=== PATIENT | female | born 1990 | race Caucasian/White ===

== ENCOUNTER 2018-02-24 18:26 | Emergency (ER) | payer OTHER ==
[2018-02-24 19:39] VITALS: BP 0/0
== END 2018-02-24 19:40 | disposition left against medical advice (07) ==
LOC: ED 18:26
DX: K08.89 Other specified disorders of teeth and supporting structures (principal); Z53.20 Procedure and treatment not carried out because of patient's decision for unspecified reasons
CPT/HCPCS: 99281

== ENCOUNTER 2018-04-18 15:40 | Inpatient (IN) | payer OTHER ==
[2018-04-18 16:23] LABS: Urine Appearance Cloudy; Urine Blood 1+ (Negative); Urine Color Yellow; Urine Ketones Negative (Negative); Urine Protein Negative (Negative); Urine Specific Gravity 1.003 (1.010-1.030); Urine Urobilinogen Negative (Negative)
[2018-04-18] MEDS ORDERED: Buffered Lidocaine 0.9% SYRIN* 5 ML/SYR SYRINGE ONE (17:39)
--- NOTE | 2018-04-18 18:14 | HP ---
General Information - General Information Maternal Age: 27 Grav: 4 Para: 3 SAB: 0 IEA: 0 Estimated Due Date: 05/14/18 Determined By: Early Ultrasound Gestational Age in Weeks and Days: 36 Weeks and 2 Days Maternal Blood Type and Rh: O Positive - Results this Serology/RPR Result: Non-Reactive Rubella Result: Immune HBsAg Result: Negative HIV Result: Negative GBS Culture Result: Positive Past Medical History Delivery History: Hx Uncomplicated Vaginal Delivery Delivery History Comment: 09/2010 35 weeks 5lb 8oz male 03/2012 38 weeks 6lbs 12oz female 01/2015 38 weeks 7lbs 10oz male Pertinent Past Medical History: See Records Past Medical History Comment: +Tobacco Use 1/2 PPD + THC use in + Fentanyl metabolite in . Pt denies use. Hypothesized that she smoked weed with her sister that was laced Pertinent Past Surgical History: See Records Past Surgical History Comment: 1992 Surgery on nasal passage [place] tooth extraction Pertinent Family History: See Records Family History Comment: Father: substance abuse Mother: asthma, CVA Son: Hypothyroidism brother (twin 1): asthma, stomach ulcers brother (twin 2): , accident sister (twin 1): at , CP sister (twin 2): due to heart tumor, kidney failure MGM: DM, type II MGF: , MA - Antepartal Records Antepartal Records: Reviewed, Complicated by: - +THC Use Review of Systems Constitutional: Uncomfortable - with UCs CV Complaint: No Respiratory: Shortness of Breath: No Gastrointestinal: No Nausea/Vomiting, Normal Bowel Movement Genitourinary: No Dysuria, No Bleeding, No Leaking Fluid Musculoskeletal: Contractions Neurological: No Headache, No Visual Changes Movement: Normal Exam Allergies/Adverse Reactions: Allergies amoxicillin Allergy (Verified 04/18/18 16:34) Hives Penicillins Allergy (Verified 04/18/18 16:40) Hives BP 122/81 HR 74 T 97.9 RR 18 Lab Values - Entire Visit: Laboratory Tests 04/18/18 04/18/18 15:55 15:55 Urine Color Yellow Urine Appearance Cloudy Urine pH 7.0 Ur Specific [place] 1.003 L Urine Protein Negative Urine Ketones Negative Urine Blood 1+ A Urine Nitrate Negative Urine Bilirubin Negative Urine Urobilinogen Negative Ur Leukocyte Esterase Trace A Urine WBC (Auto) Trace(0-5/hpf) Urine RBC (Auto) Trace(0-2/hpf) Ur Squamous Epith Cells Present A Urine Bacteria Absent Urine Glucose Negative Urine Opiates Screen None detected Ur Barbiturates Screen None detected Ur Phencyclidine Scrn None detected Ur Amphetamines Screen None detected U Benzodiazepines Scrn None detected Urine Cocaine Screen None detected U Cannabinoids Screen None detected - Measurements Height: 5 ft 2.5 in Weight: 123 lb Weight in lbs: 123 Body Mass Index (BMI): 22.1 Pre- Weight: 110 lb Weight Gained This : 13 lbs and 0 ozs - Exam Abdomen: No Upper Quadrant Pain Breast: Breast Exam Deferred CVA: No CVA Tenderness Extremities: No Edema Heart: Normal Rhythm/Heart Sounds HEENT: No Significant Findings Lungs: Clear Bilaterally Rectal: Rectal Exam Deferred Reflexes: DTR 2+ Thyroid: No Thyromegaly - Abdominal Exam Abdomen Exam: Non-Tender, Fundal Height Consistent with Dates - Ultrasound/Biophysical Profile Ultrasound Status: Not Done Targeted Exam Findings See L&D Outpatient Visit Provider Note for Findings: N/A Estimated Weight: 5.5-6lbs Cervical Exam: 5cm Effacement: 80% Station: -1 Presenting Part: Vertex Membrane Status: Bulging Sterile Speculum Exam: not done Bleeding/Discharge: Bloody Show - with exam EFM Findings - External Monitor Findings Baseline Heart Rate: 125 External Monitor Findings: Accelerations Present, No Pattern of Variable or Late Decelerations, Variability Moderate, Baseline Stable External Monitor Findings Comment: No evidence of metabolic acidemia Contractions: Regular, Moderate, 45-90 Seconds - q 2-6 Assessment/Plan - Reason for Visit Reason for Visit: labor - Obstetrical Risk Factors Obstetrical Risk Factors: GBS Positive, , Substance Abuse, Tobacco Use - Plan Plan: Observe, Early Labor Plan Comment: Continue to monitor. Begin GBS Prophylaxis. Anticipate - Date/Time of Admission Date of Admission: 04/18/18 Time of Admission: 18:28
[2018-04-18 18:22] LABS: ABS Basophils 0.1 10^3/ul (0-0.2); ABS Eosinophils 0.2 10^3/ul (0-0.6); ABS Lymphocytes 2.3 10^3/ul (1.0-4.8); ABS Monocytes 0.9 10^3/ul (0-0.8); ABS Neutrophils 11.2 10^3/ul (1.5-7.7); ABS Nucleated RBC 0 10^3/ul; Eosinophil % 1.1 % (0-6); Hematocrit 39 % (35-47); Hemoglobin 13.4 g/dl (12.0-16.0); Lymphocyte % 15.9 % (25-47); Mean Corpuscular HGB Conc 34 g/dl (31-36); Mean Corpuscular Hemoglobin 31 pg (27-31); Mean Corpuscular Volume 90 fL (80-97); Mean Platelet Volume 9.7 um3 (7.4-10.4); Nucleated Red Blood Cells % 0; Platelet Count 273 10^3/ul (150-450); Red Blood Count 4.33 10^6/ul (4.0-5.4); Red Cell Distribution Width 14 % (10.5-15); White Blood Count 14.7 10^3/ul (3.5-10.8)
[2018-04-18] MEDS ORDERED: Vancomycin(*) 1,000 MG in NS 0.9% 250 ML* 250 ML IVPB SCH (19:00)
[2018-04-18] MEDS ORDERED: Oxytocin in LR* 0 UNITS/0 ML BAG IVPB ONE (23:28)
[2018-04-19] MEDS ORDERED: Dibucaine 1% 28.35 GM TUBE PR PRN (03:10)
[2018-04-19] MEDS ORDERED: Witch Hazel PAD* JAR TOPICAL PRN (03:10)
[2018-04-19] MEDS ORDERED: Glycerin ADULT SUPP PR PRN (03:10)
[2018-04-19] MEDS ORDERED: OXYTOCIN* 10 UNITS/ML 1 ML VIAL IM ONE (03:10)
[2018-04-19] MEDS ORDERED: Acetaminophen TAB* 325 MG PO PRN (03:10)
[2018-04-19] MEDS: Ibuprofen TAB* 600 MG PO PRN ×3 (04:07→17:09)
[2018-04-19] MEDS ORDERED: OXYTOCIN* 10 UNITS/ML 1 ML VIAL ONE (05:03)
[2018-04-19] MEDS ORDERED: Simethicone TAB* 80 MG TAB.CHEW PO SCH (08:30)
[2018-04-19] MEDS: Docusate CAP* 100 MG PO SCH ×3 (10:48→20:49)
[2018-04-20 06:53] LABS: ABS Basophils 0.1 10^3/ul (0-0.2); ABS Eosinophils 0.2 10^3/ul (0-0.6); ABS Lymphocytes 2.9 10^3/ul (1.0-4.8); ABS Neutrophils 7.5 10^3/ul (1.5-7.7); ABS Nucleated RBC 0 10^3/ul; Eosinophil % 1.6 % (0-6); Hematocrit 33 % (35-47); Hemoglobin 11.3 g/dl (12.0-16.0); Lymphocyte % 24.9 % (25-47); Mean Corpuscular HGB Conc 34 g/dl (31-36); Mean Corpuscular Hemoglobin 31 pg (27-31); Mean Corpuscular Volume 90 fL (80-97); Mean Platelet Volume 9.3 um3 (7.4-10.4); Nucleated Red Blood Cells % 0; Platelet Count 231 10^3/ul (150-450); Red Blood Count 3.67 10^6/ul (4.0-5.4); Red Cell Distribution Width 14 % (10.5-15); White Blood Count 11.6 10^3/ul (3.5-10.8)
[2018-04-20] MEDS: Ibuprofen TAB* 600 MG PO PRN (08:06)
[2018-04-20] MEDS: Docusate CAP* 100 MG PO SCH (08:06)
[2018-04-20 09:00] VITALS: BP 100/59
[2018-04-20] MEDS ORDERED: Ferrous Gluconate TAB* 324 MG TAB PO SCH (09:00)
== END 2018-04-20 12:50 | disposition home or self-care (01) | DRG 560 ==
LOC: MCHOBOUT 15:40 → MCHOB 17:36
PROVIDERS: ADMIT Midwife; ATTEND Midwife
PROC: 10E0XZZ Delivery of Products of Conception, External Approach (ICD-10-PCS; principal; 2018-04-19)
PROC: 10907ZC Drainage of Amniotic Fluid, Therapeutic from Products of Conception, Via Natural or Artificial Opening (ICD-10-PCS; 2018-04-19)
DX: O60.14X0 Preterm labor third trimester with preterm delivery third trimester, not applicable or unspecified (principal); O99.824 Streptococcus B carrier state complicating childbirth; O69.3XX0 Labor and delivery complicated by short cord, not applicable or unspecified; O69.89X0 Labor and delivery complicated by other cord complications, not applicable or unspecified; Z3A.36 36 weeks gestation of pregnancy; Z37.0 Single live birth
CPT/HCPCS: 36415; 80307; 81003; 81015; 85025; 86850; 86900; 86901; 87086; 88307; A9270-GY; J2590; J3370

== ENCOUNTER 2019-08-19 05:32 | Inpatient (IN) | payer OTHER ==
[2019-08-19] MEDS ORDERED: Oxytocin in LR* 20 UNITS/1,000 ML BAG IVPB ONE (06:05)
[2019-08-19] MEDS ORDERED: Acetaminophen TAB* 325 MG PO PRN (06:27)
[2019-08-19] MEDS ORDERED: Glycerin ADULT SUPP PR PRN (06:27)
[2019-08-19] MEDS ORDERED: Witch Hazel PAD* JAR TOPICAL PRN (06:27)
[2019-08-19] MEDS ORDERED: Dibucaine 1% 28.35 GM TUBE PR PRN (06:27)
--- NOTE | 2019-08-19 06:42 | PROCNOTE ---
[facility] OB: Delivery Note - Delivery A Date of : 08/19/19 Time of : 06:02 [place] Sex: Female Score 1 Minute: 7 Score 5 Minutes: 8 Gestational Age in Weeks and Days at Delivery: 37 Weeks and 5 Days Delivery Method: Spontaneous Vaginal Labor: Spontaneous Did Patient attempt ?: N/A, No Previous Amniotic Fluid: Clear Estimated Blood Loss: 400 Anesthesia/Analgesia: None Delivered By: Malena Gutierrez - Nursery Level of Nursery: Regular/Bedside - Perineum Perineal Injury: None/Intact Perineal Repair: None - Events Delivery Events of Note: Pitocin Only After Delivery, Precipitous Delivery Delivery Events of Note Comment: Delivered in tub. umbilical cord snapped following delivery - Additional Delivery Notes Additional Delivery Notes: at 37 2/7 weeks in spontaneous labor experienced SROM to clear fluid at 0600 while laboring in the tub. head delivered OA at 0602, shoulders followed easily with next push. Infant delivered to maternal abdomen, umbilical cord found to be snapped. Cord clamped, to warmer, spontaneous cry and HR > 110. Apgars 7 and 8. [employer] Manager and RNs assisted Lilian to bed, cord blood collected and IV started to hand pitocin. Spontaneous alexandro placenta followed at 0608, inspected and appears intact; fundus firm with massage. Perineum and vagina inspected and found to be intact. to NICU for high heart rate and possible blood loss, mother and infant both in stable condition at time of note. feeding plan is breast and bottle.
[2019-08-19] MEDS ORDERED: Lactated Ringers 1000 ML Bag* 1,000 ML IV SCH (07:00)
[2019-08-19] MEDS ORDERED: Oxytocin in LR* 20 UNITS/1,000 ML BAG IVPB SCH (07:00)
--- NOTE | 2019-08-19 07:33 | HP ---
General Information - Reason for Visit Contractions - General Information Maternal Age: 29 Grav: 5 Para: 4 SAB: 0 IEA: 0 Estimated Due Date: 09/04/19 Determined By: Early Ultrasound Gestational Age in Weeks/Days: 37 5/7 Maternal Blood Type and Rh: O Positive - Results this Serology/RPR Result: Non-Reactive Rubella Result: Immune HBsAg Result: Negative HIV Result: Negative GBS Culture Result: Positive Past Medical History Delivery History: Hx Uncomplicated Vaginal Delivery Pertinent Past Medical History: See Records Past Medical History Comment: anxiety, history of substance use Pertinent Past Surgical History: See Records Past Surgical History Comment: wisdom tooth extraction, nasal surgery Pertinent Family History: See Records Family History Comment: Father: substance abuse Mother: asthma, stroke - Antepartal Records Antepartal Records: Reviewed, Complicated by: - GBS positive, tobacco use, grand multiparity Review of Systems Constitutional: Uncomfortable CV Complaint: No Respiratory: Shortness of Breath: No Gastrointestinal: Normal Bowel Movement, Nausea Genitourinary: No Dysuria, No Bleeding, No Leaking Fluid Musculoskeletal: Contractions Neurological: No Headache, No Visual Changes Movement: Normal Exam Allergies/Adverse Reactions: Allergies amoxicillin Allergy (Verified 08/11/19 19:55) Hives Penicillins Allergy (Verified 08/11/19 19:55) Hives - Measurements Height: 5 ft 2 in Weight: 130 lb Weight in lbs: [id number] Body Mass Index (BMI): 23.8 Pre- Weight: 110 lb Weight Gained This : 20 lbs and 0 ozs - Exam CVA: No CVA Tenderness Extremities: No Edema Heart: Normal Rhythm/Heart Sounds HEENT: No Significant Findings Lungs: Clear Bilaterally Reflexes: DTR 2+ - Abdominal Exam Abdomen Exam: Non-Tender, Fundal Height Consistent with Dates - Ultrasound/Biophysical Profile Ultrasound Status: Not Done Targeted Exam Findings See L&D Outpatient Visit Provider Note for Findings: Yes - from 08/18/19 Estimated Weight: 6.5 lb by bryant Presenting Part: Vertex EFM Findings - External Monitor Findings Baseline Heart Rate: 125 External Monitor Findings: No Pattern of Variable or Late Decelerations, Variability Moderate, Baseline Stable Contractions: Regular, Strong, 45-90 Seconds Assessment/Plan - Assessment A: IUP at 37 5/7 weeks Doubt metabolic acidemia GBS positive Active labor/transition P: Admit to inpatient Pt not treated for GBS - precipitous delivery in tub - Obstetrical Risk Factors Obstetrical Risk Factors: GBS Positive, Tobacco Use, Psychiatric Issues - Plan Plan: Admit - Anticipate Vaginal Delivery - Date/Time of Admission Date of Admission: 08/19/19 Time of Admission: 05:50
[2019-08-19] MEDS: Ibuprofen TAB* 600 MG PO PRN ×3 (07:39→20:03)
[2019-08-19] MEDS ORDERED: Simethicone TAB* 80 MG TAB.CHEW PO SCH (08:30)
[2019-08-19] MEDS: Docusate CAP* 100 MG PO SCH ×3 (10:18→21:50)
[2019-08-19 10:24] LABS: Urine Benzodiazepine Screen None Detected (None Detect); Urine Opiates Screen None Detected (None Detect)
[2019-08-19] MEDS: Nicotine PATCH 7 MG/24 HR* PATCH TRANSDERM SCH (13:36)
[2019-08-19] MEDS: Nicotine Patch Removal NOTE PATCH OFF SCH (16:16)
[2019-08-20 08:36] LABS: Hematocrit 35 % (35-47); Hemoglobin 12.1 g/dL (12.0-16.0); Mean Corpuscular HGB Conc 34 g/dL (31-36); Mean Corpuscular Hemoglobin 32 pg (27-31); Mean Corpuscular Volume 92 fL (80-97); Mean Platelet Volume 9.1 fL (7.4-10.4); Platelet Count 301 10^3/uL (150-450); Red Blood Count 3.84 10^6 /uL (3.70-4.87); Red Cell Distribution Width 14 % (10-15); White Blood Count 12.2 10^3/uL (3.5-10.8)
[2019-08-20 09:04] LABS: ABS Basophils 0.1 10^3/ul (0-0.2); ABS Eosinophils 0.4 10^3/ul (0-0.6); ABS Lymphocytes 2.3 10^3/ul (1.0-4.8); ABS Monocytes 1.1 10^3/ul (0-0.8); ABS Neutrophils 8.2 10^3/ul (1.5-7.7); Eosinophil % 3.3 %; Lymphocyte % 19.1 %
[2019-08-20] MEDS: Docusate CAP* 100 MG PO SCH ×2 (12:43→21:00)
[2019-08-20] MEDS: Ibuprofen TAB* 600 MG PO PRN ×2 (12:44→21:01)
[2019-08-20] MEDS: Ferrous Gluconate TAB* 324 MG TAB PO SCH (21:00)
[2019-08-21] MEDS: Docusate CAP* 100 MG PO SCH ×2 (07:23→08:58)
[2019-08-21] MEDS: Nicotine Patch Removal NOTE PATCH OFF SCH (07:23)
[2019-08-21] MEDS: Nicotine PATCH 7 MG/24 HR* PATCH TRANSDERM SCH (07:23)
[2019-08-21] MEDS: Ferrous Gluconate TAB* 324 MG TAB PO SCH ×2 (07:23→08:58)
[2019-08-21 10:41] VITALS: BP 129/61
[2019-08-21] MEDS ORDERED: Influenza VAC *QUAD* 2019-20* 0.5 ML SYRINGE IM ONE (11:00)
== END 2019-08-21 11:45 | disposition home or self-care (01) | DRG 560 ==
LOC: MCHOBOUT 05:32 → MCHOB 05:36
PROVIDERS: ADMIT Midwife; ATTEND Midwife
PROC: 10E0XZZ Delivery of Products of Conception, External Approach (ICD-10-PCS; principal; 2019-08-19)
DX: O99.824 Streptococcus B carrier state complicating childbirth (principal); Z37.0 Single live birth; O99.334 Smoking (tobacco) complicating childbirth; O62.3 Precipitate labor; O69.89X0 Labor and delivery complicated by other cord complications, not applicable or unspecified; O69.3XX0 Labor and delivery complicated by short cord, not applicable or unspecified; Z3A.37 37 weeks gestation of pregnancy
CPT/HCPCS: 36415; 80307; 85025; 88307; A9270-GY

== ENCOUNTER 2023-12-09 12:42 | Inpatient (IN) ==
[2023-12-09] MEDS ORDERED: Lidocaine 1% VIAL 10 MG/ML 30 ML VIAL INJ PRN (14:45)
[2023-12-09] MEDS ORDERED: Buffered Lidocaine 1% SYRIN 1 ml INTRADERM ONE (14:45)
[2023-12-09] MEDS ORDERED: Lactated Ringers 1000 ml BAG 1,000 ML IV ONE (14:45)
[2023-12-09] MEDS ORDERED: Lactated Ringers 1000 ml BAG 1,000 ML IV SCH (15:00)
[2023-12-09 15:44] LABS: Urine Benzodiazepine Screen None Detected (None Detect); Urine Opiates Screen None Detected (None Detect)
[2023-12-09 16:15] LABS: ABS Basophils 0.1 10^3/uL (0.0-0.1); ABS Lymphocytes 1.5 10^3/uL (1.0-4.8); ABS Monocytes 0.5 10^3/uL (0.0-0.9); ABS Neutrophils 8.1 10^3/uL (1.5-7.6); ABS Nucleated RBC 0.01 10^3/ul; Eosinophil % 0.3 %; Hemoglobin 12.7 g/dL (11.5-14.3); Mean Corpuscular Hemoglobin 31.5 pg (27-33); Mean Corpuscular Hgb Conc 34.4 g/dL (31-36); Mean Corpuscular Volume 91.6 fL (80-97); Mean Platelet Volume 10.1 fL (7.5-11.2); Nucleated Red Blood Cells % 0.1 %/100WBC (0.0-0.8); Platelet Count 271 10^3/uL (150-450); Red Blood Count 4.04 10^6/uL (3.63-4.92); Red Cell Distribution Width 13.8 % (12-17); White Blood Count 10.2 10^3/uL (3.8-11.8)
[2023-12-09] MEDS: Clindamycin 900 MG/D5W BAG 900 MG/50 ML BAG IVPB SCH (16:59)
[2023-12-09] MEDS ORDERED: miSOPROStol 100 mcg TAB PO ONE (19:17)
[2023-12-09] MEDS ORDERED: Oxytocin in LR 0 MILLI.UNIT/0 ML BAG IV ONE (23:25)
[2023-12-10] MEDS ORDERED: Bupivacaine 0.5% SDV PF 30ML VIAL ONE (00:15)
[2023-12-10] MEDS ORDERED: Witch Hazel PAD JAR TOPICAL PRN (00:39)
[2023-12-10] MEDS ORDERED: Dibucaine 1% OINT 28.35 GM TUBE PR PRN (00:39)
[2023-12-10] MEDS ORDERED: Lactated Ringers 1000 ml BAG 1,000 ML IV SCH (01:00)
[2023-12-10] MEDS: Clindamycin 900 MG/D5W BAG 900 MG/50 ML BAG IVPB SCH ×3 (08:18→18:35)
[2023-12-11 07:18] LABS: ABS Basophils 0.1 10^3/uL (0.0-0.1); ABS Eosinophils 0.2 10^3/uL (0.0-0.5); ABS Lymphocytes 2.6 10^3/uL (1.0-4.8); ABS Monocytes 0.6 10^3/uL (0.0-0.9); ABS Neutrophils 4.1 10^3/uL (1.5-7.6); Eosinophil % 2.6 %; Hemoglobin 10.9 g/dL (11.5-14.3); Lymphocyte % 34.9 %; Mean Corpuscular Hgb Conc 35.2 g/dL (31-36); Mean Corpuscular Volume 90.8 fL (80-97); Mean Platelet Volume 9.5 fL (7.5-11.2); Nucleated Red Blood Cells % 0.1 %/100WBC (0.0-0.8); Platelet Count 244 10^3/uL (150-450); Red Blood Count 3.41 10^6/uL (3.63-4.92); Red Cell Distribution Width 13.4 % (12-17); White Blood Count 7.5 10^3/uL (3.8-11.8)
[2023-12-11 13:48] VITALS: BP 109/77
== END 2023-12-11 15:30 | disposition home or self-care (01) | DRG 560 ==
LOC: MCHOBOUT 12:42 → MCHOB 14:35
PROVIDERS: ADMIT Registered Nurse; ATTEND Registered Nurse